=== PATIENT | female | born 1980 | race American Indian/Alaskan Native ===

== ENCOUNTER 2021-08-07 04:00 | Emergency (ER) | payer MEDICAID ==
[2021-08-07 04:06] VITALS: BP 134/86
== END 2021-08-07 23:19 | disposition left against medical advice (07) ==
LOC: ED 04:00
DX: T78.40XA Allergy, unspecified, initial encounter (principal); Z53.21 Procedure and treatment not carried out due to patient leaving prior to being seen by health care provider